=== PATIENT | female | born 1985 | race Caucasian/White ===

== ENCOUNTER 2021-01-15 00:09 | Day surgery (SDC) | payer BC, MEDICAID, SELFPAY ==
[2021-01-04 09:14] VITALS: BMI 23.3
--- NOTE | 2021-01-14 17:39 | PM.IMHP ---
H&P: HPI History of Present Illness Date/Time: 01/14/21 17:39 Patient is 36yo with a history of abnormal uterine bleeding since approx. 03/2020. Patient reported progressively heavier and more irregular menses over time. She was started on OCPs and experienced persistently heavy bleeding with passage of clots. OCPs were adjusted several times, however, irregular bleeding has continued. Decision made to proceed with further evaluation and management with a hysteroscopy, dilation and curettage, and endometrial ablation with Amina. Patient does not desire future fertility and desires permanent sterilization at same time as procedure. Plan is to perform a laparoscopic bilateral salpingectomy at same time. In general, patient reports feeling well today without complaints. Chief Complaint: Abnormal uterine bleeding Review of Systems Review of Systems: All systems reviewed & are unremarkable except as noted in HPI and below Constitutional: Constitutional: Reports as per HPI, Reports no additional constitutional complaints, Denies chills, Denies fever(s), Denies headache(s) and Denies night sweats Eyes: Eyes: Reports as per HPI and Reports no additional eye complaints ENT: Reports system reviewed and no additional complaints, except as documented, Reports as per HPI, Reports Normal hearing present and Denies headache(s) Cardiovascular: Cardiovascular: Reports as per HPI, Reports no additional cardiovascular complaints, Denies chest pain and Denies dyspnea Respiratory: Respiratory: Reports as per HPI, Reports no additional respiratory complaints, Denies cough and Denies dyspnea Gastrointestinal: Gastrointestinal: Reports as per HPI, Reports no additional gastrointestinal complaints, Denies abdominal pain, Denies change in bowel habits, Denies change in stool character, Denies nausea and Denies vomiting Genitourinary: Genitourinary: Reports no additional female genitourinary complaints, Reports as per HPI, Reports abnormal vaginal bleeding, Denies genital lesions, Denies hot flashes, Denies dyspareunia, Denies pelvic pain, Denies sexual dysfunction, Denies urinary incontinence, Denies vaginal discharge, Denies vaginal dryness and Denies vaginal odor Musculoskeletal: Musculoskeletal: Reports no additional musculoskeletal complaints and Reports as per HPI Integumentary/Breasts: Skin/Breast: Reports system reviewed and no additional complaints, except as docu, Reports as per HPI, Denies breast pain and Denies nipple discharge Neurologic: Reports system reviewed and no additional complaints, except as documented, Reports as per HPI, Reports Normal hearing present and Denies headache(s) Psychiatric: Psychiatric: Reports no additional psychiatric complaints, Reports as per HPI, Denies anxiety and Denies depression Endocrine: Endocrine: Reports no additional endocrine complaints and Reports as per HPI Hematologic/Lymphatic: Hematologic/Lymphatic: Reports no additional hematologic/lymphatic complaints and Reports as per HPI Allergic/Immunologic: Allergic/Immunologic: Reports no additional allergic/immunologic complaints and Reports as per HPI PMFSH Past Medical History Medical History Spontaneous Surgical History Surgical History History of dilation and curettage Previous section x 3 Family History Family History Father Family history of blood dyscrasia Hypertension Cerebrovascular accident Mother Family history of lung cancer Social History Social History Smoking status: Never smoker Second hand tobacco smoke exposure: No Alcohol intake: never Substance use: never Substance use type: does not use Spiritual care concerns: No Meds Home Medications and Allergies Home Medications
[2021-01-15] VITALS (8 sets, daily range): BP systolic 102–115; BP diastolic 64–80; PULSE 52–88; RESP 12–16; TEMP 36.8; O2SAT 99–100
[2021-01-15] MEDS: LACTATED RINGERS 1,000 ML 30 ML IV CONT ×2 (06:43→08:39)
[2021-01-15] MEDS: ACETAMINOPHEN 500 MG TABLET 1000 MG PO (06:44)
[2021-01-15] MEDS: KETOROLAC 15 MG/ML VIAL (*BKC) IV PUSH (06:44)
--- NOTE | 2021-01-15 07:08 | WPDANESEPPF ---
Anes - Initial Pre Proc Eval Procedure: Operation Date: 01/15/21 07:30 Proposed Procedures p Laparoscopic Bilateral Salpingectomy, Hysteroscopy, Dilatation and Curettage with Endometrial Ablation - Brenda Quintana MD Date/Time: 01/15/21 07:08 Surgeon: Brenda Quintana MD Pre Op Diagnosis: abnormal uterine bleeding, desires sterilization Patient Data Age: 36 Gender: F Height: 5 ft 5 in Weight: 65.1 kg Last Vital Signs Temp 98.2 F 01/15/21 06:06 Pulse 82 01/15/21 06:06 Resp 16 01/15/21 06:06 BP 111/70 01/15/21 06:06 Pulse Ox 100 01/15/21 06:06 Allergies Allergy/AdvReac Type Severity Reaction Status Date / Time No Known Allergies Allergy Verified 01/15/21 06:29 Home Medications Medication Instructions Recorded Confirmed Type bzdpqahjmyrp-La-dufw-minerals 1 tablet PO DAILY 01/04/21 01/15/21 History [Women's One Daily] norgestimate-ethinyl estradiol 1 tablet PO HS 01/04/21 01/15/21 History Patient hx anesthesia problems: none Family hx anesthesia problems: none PMFSH Past Medical History Medical History Spontaneous Surgical History Surgical History History of dilation and curettage Previous section x 3 Family History Family History Father Family history of blood dyscrasia Hypertension Cerebrovascular accident Mother Family history of lung cancer Social History Social History Smoking status: Never smoker Second hand tobacco smoke exposure: No Alcohol intake: never Substance use: never Substance use type: does not use Living arrangements: with family Spiritual care concerns: No Anes - Eval Final PreProcedure Day of Procedure 01/15/21 07:08 Patient weight: normal Heart: regular rate and rhythm Lungs: clear to auscultation Airway: Mallampati scale class II Neurological: alert and oriented Last oral intake: >/= 8 hours ASA classification: I Emergent: no Anesthetic plan: proceed Anesthesia type and monitoring: general ETT and standard monitoring Informed Consent: The patient's anesthetic plan and its attendant risks and benefits were discussed with the patient/family/POA. Questions were solicited and answers provided to the satisfaction of the patient/family/POA.
--- NOTE | 2021-01-15 07:26 | WPDHPUPDATE1 ---
History and Physical Update Update Date/Time: 01/15/21 07:26 History and Physical has been reviewed, including an updated exam of the patient. There are NO changes in the patient's condition. Risks, benefits, and alternatives have been discussed and questions answered. Patient agrees to proceed with procedure.
--- NOTE | 2021-01-15 09:05 | PM.PROC ---
Procedure Note - Detailed Date of procedure: 01/15/21 Pre-op diagnosis: abnormal uterine bleeding, desires sterilization Post-op diagnosis: same Procedure performed: Laparoscopic bilateral salpingectomy Hysteroscopy, dilation and curettage, endometrial ablation with Amina Description of procedure: The patient was taken to the operating room where she self-transferred to the operating room table. She was placed in dorsal supine position. Anesthesia was administered and found to be adequate. The patient was repositioned in dorsal lithotomy position with the use of Obed stirrups. She was prepped and draped in usual sterile fashion. A darden catheter was inserted using aseptic technique. A sponge stick was placed in the vagina. Attention was turned to the patient's abdomen. An infraumbilical skin incision was made with a scalpel. With the abdomen tented up, a Veress needle was introduced into the abdominal cavity. Intra-abdominal placement was confirmed with saline. The Veress needle was connected to CO2 tubing and insufflation was begun. When adequate pneumoperitoneum was achieved, the Veress needle was removed and a 5 mm Optiview trocar was introduced under direct visualization with the laparoscope. The patient was placed in Trendelenburg position and a brief pelvic survey was performed with good visualization. Decision was made to place two accessory trocars for completion of the procedure, one in the left lower quadrant and the other in the right lower quadrant. A skin incision was made in the right lower quadrant and 5 mm trocar was introduced under direct visualization. Similarly, a skin incision was made in the left lower quadrant and another 5 mm trocar was introduced under direct visualization. With the use of blunt graspers, a general pelvic survey was performed. The uterus was noted to be adherent to the anterior abdominal wall, however, appeared grossly normal. The ovaries and fallopian tubes also appeared normal. The left fallopian tube was identified and followed through to the fimbriated end. Starting at the fimbriated and, sequential bites in the mesosalpinx beneath the fallopian tube were taken using a 5 mm LigaSure device towards the uterine cornua. When the level of the uterine cornua was reached, the fallopian tube was transected and completely detached. The fallopian tube was then removed and handed off to be sent to pathology. Attention was then turned to the patient's right fallopian tube, which in a similar manner, was grasped and followed through to the fimbriated end. With the use of the LigaSure device, sequential bites in the mesosalpinx beneath the fallopian tube were taken until the level of the uterine cornua was reached. The fallopian tube was then transected, completely detached, and removed. No bleeding was noted. A general abdominal survey was performed and all visualized structures appeared normal. Photographs were taken. The abdomen was desufflated and all trocars were removed. The patient's abdomen was cleansed and dried. Exparel was injected beneath the skin incisions for postoperative pain control. The incision sites were closed with 4-0 Monocryl in a subcuticular fashion. They were covered with gauze and tegaderm. Attention was then turned to the patient's vagina. A bivalve speculum was inserted into the vagina. The cervix was well visualized. The anterior lip of the cervix was grasped with a single-tooth tenaculum. A paracervical block was performed with 1% plain lidocaine. 5 cc of lidocaine was administered on either side for a total of 10 cc. The uterus was then sounded to 10 cm. The cervix was serially dilated to accommodate a hysteroscope. The hysteroscope was introduced into the endometrial cavity. A general survey was performed. Endometrial cavity appeared grossly normal. Bilateral tubal ostia were visualized. A few pictures were taken. The hysteroscope was removed. A medium-size rigid curette was used to perform a curettage. All quadran
== END 2021-01-15 10:18 | disposition home or self-care (01) ==
PROVIDERS: PCP Family Medicine; Visit Provider Student in an Organized Health Care Education/Training Program
PROC: 0UDB8ZZ Extraction of Endometrium, Via Natural or Artificial Opening Endoscopic (ICD-10-PCS; CPT 58558; principal; 2021-01-15 07:30)
DX: N93.9 Abnormal uterine and vaginal bleeding, unspecified (principal); Z30.2 Encounter for sterilization
CPT/HCPCS: 58661; 58563; 88302; 88305; A9270; C9290; J1100; J1885; J2250; J2405; J2704; J2710; J7030; J7120

== ENCOUNTER 2024-01-16 14:54 | Outpatient (CLI) | payer BC, MEDICAID, SELFPAY ==
--- NOTE | ~2024-01-16 | MM_ITS ---
EXAMINATION: MM screening [facility] BI w samantha HISTORY: Screening TECHNIQUE: Craniocaudal and mediolateral oblique 3-D tomosynthesis images were obtained and synthetic 2-D images were generated. CAD analysis was submitted and interpreted. COMPARISON: No prior mammogram is available for comparison at this institution. BREAST PARENCHYMAL COMPOSITION: Dense: The breasts are heterogeneously dense, which may obscure small masses FINDINGS: There is no evidence of suspicious mass, calcification, or architectural distortion to sugg est malignancy in either breast. There has been no suspicious interval change. IMPRESSION: 1. No mammographic evidence of malignancy. 2. Recommend routine screening mammography in one year. BI-RADS Category 1: Negative Reviewed, dictated and finalized at location B.
== END 2024-01-16 14:55 ==
LOC: MICIMG 14:55
PROVIDERS: PCP Nurse Practitioner Family; Visit Provider Nurse Practitioner Family
DX: Z12.31 Encounter for screening mammogram for malignant neoplasm of breast (principal)
CPT/HCPCS: 77063; 77067

== ENCOUNTER 2025-05-28 15:20 | Outpatient (CLI) | payer BC, MEDICAID, SELFPAY ==
--- NOTE | ~2025-05-28 | MM_ITS ---
EXAMINATION: MM screening armen BI w samantha HISTORY: Screening TECHNIQUE: Craniocaudal and mediolateral oblique 3-D tomosynthesis images were obtained and synthetic 2-D images were generated. CAD analysis was submitted and interpreted. COMPARISON: 01/16/2024 BREAST PARENCHYMAL COMPOSITION: The breasts are heterogeneously dense, which may obscure small masses. FINDINGS: There is no evidence of suspicious mass, calcification, or architectural distortion to suggest malignancy. There has been no suspicious interval change. IMPRESSION: 1. No mammographic evidence of malignancy. Recommend routine screening mammography in one year. BI-RADS Category 2: Benign finding(s) Reviewed, dictated and finalized at location Q. IMPRESSION: 1. No mammographic evidence of malignancy. Recommend routine screening mammogra phy in one year. BI-RADS Category 2: Benign finding(s)
== END 2025-05-28 15:21 | disposition home or self-care (01) ==
LOC: MICIMG 15:21
PROVIDERS: PCP Obstetrics & Gynecology; Visit Provider Obstetrics & Gynecology
DX: Z12.31 Encounter for screening mammogram for malignant neoplasm of breast (principal)
CPT/HCPCS: 77063; 77067